=== PATIENT | male | born 1935 | race Caucasian/White ===

== ENCOUNTER → 2020-12-11 09:32 | Outpatient (CLI) | payer MEDICARE, OTHER ==
[2014-11-19 12:16] VITALS: BMI 29.3
[~2020-12-11 09:32] MED LIST: BAYER CHEWABLE81 MG PO; CARDURA8 MG PO; CO Q-10400 MG PO; COZAAR100 MG PO; DICLOFENAC SODI50 MG PO; FISH OIL 1,2001 CAP PO; FLOMAX0.4 MG PO; GLUCOPHAGE500 MG PO; GLUCOSAMINE & C1 CAP PO; HEMOCYTE PLUS C1 CAP PO; LIPITOR40 MG PO; LOPRESSOR25 MG PO; MULTIPLE VITAMI1 TA1 PO; NORVASC5 MG PO; PERCOCET 5-3251 TAB PO; PRILOSEC20 MG PO; VIAGRA100 MG PO; XALATAN 0.0052.5 ML EACH EYE; ZETIA10 MG; ZETIA10 MG PO
== END | disposition home or self-care (01) ==
LOC: D.HCCARDIO 09:32
PROVIDERS: ATTEND Internal Medicine Cardiovascular Disease
DX: I25.10 Atherosclerotic heart disease of native coronary artery without angina pectoris (principal)

== ENCOUNTER → 2020-12-18 12:01 | Day surgery (SDC) | payer MEDICARE, OTHER ==
[2014-11-19 12:16] VITALS: BMI 29.3
--- NOTE | 2020-12-18 11:30 | NUR ---
PT CANCELLED BY DR. ROGERS DUE TO PT HAVING CURRENT UTI AND STARTING ANTIBIOTICS.
== END | disposition home or self-care (01) ==
LOC: D.CATH 12:01
PROVIDERS: ATTEND Internal Medicine Cardiovascular Disease
DX: R94.30 Abnormal result of cardiovascular function study, unspecified (principal); R06.02 Shortness of breath; Z53.9 Procedure and treatment not carried out, unspecified reason

== ENCOUNTER 2021-01-02 07:08 | Day surgery (SDC) | payer MEDICARE, OTHER ==
[~2021-01-02] VITALS: Ht 182.9 cm; Wt 96.8 kg
--- NOTE | ~2021-01-02 | HEMODYNAMI ---
PATIENT:CAMI HAMPTON MEDICAL RECORD: [id number] : 37 LOCATION:[facility] ADMISSION DATE: 01/02/21 Generatedon:19:16 Patient name: CAMI HAMPTON Patient #: [id number] SSN: : 1935 Date of study: 01/02/2021 Page: Of Hemodynamic Procedure Report Patient Data Patient Demographics Procedure consent was obtained First Name: CAMI Gender: Male Last Name: MEMO : 1935 Patient #: [id number] Age: 85 year(s) Race: Unknown Additional ID: [id number] Contact details Address: [address] [place] [address] State: [place] City: [facility] Zip code: [address] Past Medical History Allergies Allergen Reaction Date Comments Reported Bactrim 01/02/2021 Admission Admission Data Admission Date: 01/02/2021 Admission Time: 7:08 Arrival Date: 01/02/2021 Arrival Time: 0:00 Height (in.): 72 BSA: 2.19 (m2) Height (cm.): 182.88 BMI: 29 (kg/m2) Weight (lbs.): 213.85 Weight (kg.): 97 Lab Results Lab Result Date: 01/02/2021 Lab Result Time: 0:00 Biochemistry Name Units Result Min Max BUN mg/dl 31 --(----)-* 7 18 Creatinine mg/dl 1.4 --(----)*- 0.6 1.3 eGFR ml/min 51 *-(----)-- 90 120 NONAFRICAN Procedure Procedure Types Cath Procedure Diagnostic Procedure C C w/Coronaries w/Grafts Sedation Charges Moderate Sedation 10-24 minutes Procedure Description Procedure Date Procedure Date: 01/02/2021 Procedure Start Time: 8:54 Procedure End Time: 9:13 Procedure Staff Name Function Tahir Carrion MD Performing Physician Kaya Aguilar RT Monitor Abby De La Cruz RT Harvey Peter RN Nurse Procedure Data Cath Procedure Fluoroscopy Diagnostic fluoroscopy Total fluoroscopy Time: 4.7 time: 4.7 min min Diagnostic fluoroscopy Total fluoroscopy dose: 813 dose: 813 mGy mGy Contrast Material Contrast Material Type Amount (ml) Isovue 300 86 Entry Location Entry Primary Successful Side Size Upsize Upsize Entry Closure Succes sful Closure Location (Fr) 1 (Fr) 2 (Fr) Remarks Device Remarks Femoral Right 5 Fr Exoseal artery Estimated blood loss: 5 ml Diagnostic catheters Device Type Used For End Catheter Placement MULTIPACK JL 4.0 5Fr Procedure catheter DIAGNOSTIC AR MOD 5Fr Procedure Catheter ([id number]) DIAGNOSTIC IM 5Fr Procedure catheter ([id number]) MULTIPACK Pigtail 5 Fr Procedure catheter Procedure Complications No complications Procedure Medications Medication Administration Route Dosage Oxygen etCO2 Nasal cannula 2 l/min Lidocaine 2% added to field 20 Heparin Flush Bag added to field 2 bags (1000units/500ml NS) 0.9% NaCl I.V. 100 ml/hr Versed I.V. 1 mg Fentanyl I.V. 50 mcg Versed I.V. 0.5 mg Fentanyl I.V. 25 mcg Hemodynamics Rest BSA: 2.19 (m2) O2 Consumption: Estimated: 244.33 (ml/min) O2 Consumption indexed : Estimated:111.57 (ml/min/m) Heart Rate: 64 (bpm) Pressure Samples Time Site Value (mmHg) Purpose Heart Use Rate(bpm) 9:07 LV 120/-5,7 Snapshot 53 9:07 AO 135/59(90) Pullback 63 9:07 LV 127/1,10 Pullback 63 Gradients Valve Time Site 1 Site 2 Mean SEP/DFP Peak To Heart Use (mmHg) (sec/min) Peak Rate (mmHg) (bpm) Aortic 9:07 LV AO 0 5 0 63 127/1,10 135/59(90) Calculations Valve P-P Mean Valve Index Valve Source Name Gradient Area Flow (cm2) Aortic 0 0 0 0 Snapshots Pre Cath Intra NCS Post Cath Vital Signs Time Heart Resp SPO2 etCO2 NIBP (mmHg) Rhythm Pain Sedation Rate (ipm) (%) (mmHg) Status Level (bpm) 8:34:25 64 11 97 8.9 150/82(114) NSR 0 (11) 10(A) , No pain 8:38:43 63 13 96 0 145/79(108) NSR 0 (11) 10(A) , No pain 8:42:55 63 10 95 20.9 139/82(119) NSR 0 (11) 10(A) , No pain 8:47:13 63 14 95 26.2 143/73(125) NSR 0 (11) 10(A) , No pain 8:51:33 63 13 92 17.9 137/77(108) NSR 0 (11) 9(A) , No pain 8:55:49 63 13 95 19.4 145/81(114) NSR 0 (11) 9(A) , No pain 9:00:11 63 11 95 23.2 147/75(120) NSR 0 (11) 9(A) , No pain 9:04:34 63 12 96 23.9 142/74(123) NSR 0 (11) 9(A) , No pain 9:08:52 64 12 96 11.2 149/78(130) NSR 0 (11) 10(A) , No pain Medications Time Medication Route Dose Verified Delivered Reason Notes Effe ctiveness by by 8:33:31 Oxygen etCO2 2 Tahir Buffie used for Nasal l/min Murali Peter RN procedure cannula 8:33:39 Lidocaine 2% added 20ml Tahir Tahir for local to vial Murali Carrion MD anesthetic field 8:33:46 Heparin Flush added 2 Tahir Tahir used for Bag to bags Murali Carrion MD procedure (1000units/500ml field NS) 8:33:56 0.9% NaCl I.V. 100 Tahir Buffie Per ml/hr Murali Peter RN physician 8:48:45 Versed I.V. 1 mg Tahir Buffie for Murali Peter RN sedation 8:48:51 Fentanyl I.V. 50 Tahir Buffie for mcg Murali Peter RN sedation 9:00:18 Versed I.V. 0.5 Tahir Buffie for mg Murali Peter RN sedation 9:00:22 Fentanyl I.V. 25 Tahir Buffie for mcg Murali Peter RN sedation Procedure Log Time Note 8:23:35 Informed consent obtained and on chart 8:24:26 Procedure Status Elective Heart Cath (OP). 8:24:28 Abby JEFFRIES(R) sent for patient. Start room use. 8:24:30 Time tracking: Regular hours (M-F 7:00 - 5:00) 8:24:32 Plan of Care:Hemodynamics will remain stable., Cardiac rhythm will remain stable., Comfort level will be maintained., Respiratory function will remain adequate., Patient/ family verbilizes understanding of procedure., Procedure tolerated without complication., Recovers from procedure without complications.. 8:24:37 H&P Date Dictated: 12/04/2020 Within 30 days and on chart., H&P Addendum completed by physician on day of procedure. (MUST COMPLETE FOR ALL OUTPATIENTS). 8:24:44 Patient allergic to Bactrim 8:25:53 Patient Weight : 213.85 lbs 8:26:17 Patient Height : 72 inches 8::22 Arrival Date: 01/02/2021 12:00:00 AM 8:27:50 Patient received from Pre/Post Procedure Room to CCL 1 Alert and oriented. Tansferred to table in Supine position. 8:32:54 Warm blankets applied, and fabian hugger turned on for patient comfort. 8:32:54 Correct patient and procedure confirmed by team. 8:33:22 Vital chart was started 8:33:31 Oxygen 2 l/min etCO2 Nasal cannula was administered by Helder Peter RN; used for procedure; Verbal order read back and verified. 8:33:39 Lidocaine 2% 20ml vial added to field was administered by Tahir Carrion MD; for local anesthetic; Verbal order read back and verified. 8:33:46 Heparin Flush Bag (1000units/500ml NS) 2 bags added to field was administered by Tahir Carrion MD; used for procedure; Verbal order read back and verified. 8:33:56 0.9% NaCl 100 ml/hr I.V. was administered by Helder Peter RN; Per physician; Verbal order read back and verified. 8:34:21 ECG and BP/O2 sat monitors applied to patient. 8:34:22 Baseline sample Acquired. 8:34:25 Rhythm: sinus rhythm 8:34:26 Full Disclosure recording started 8:34:31 Pre-procedure instructions explained to patient. 8:34:31 Pre-procedure instructions explained to patient. 8:34:32 Pre-op teaching completed and patient verbalized understanding. 8:34:34 Family in patients room. 8:34:35 Patient NPO since Midnight. 8:34:37 Is the patient allergic to Iodine/contrast media? No. 8:34:40 Is patient on blood thinner?No 8:34:41 Patient diabetic? Yes. 8:34:42 If diabetic: On Metformin? Yes 8:34:44 If on Metformin: Last Dose? 12/31/2020 8:34:48 Previous problem with sedation/anesthesia? No ? 8:34:49 Snore? Yes 8:34:50 Sleep apnea? No 8:34:51 Deviated septum? No 8:34:52 Opens mouth fully? Yes 8:34:52 Sticks out tongue? Yes 8:34:54 Airway obstruction? No ? 8:34:56 Dentures? No ? 8:35:02 Pre procedure: right dorsailis pedis pulse 2+ Normal; easily identifiable; not easily obliterated 8:35:05 Patient pain scale 0/10 ?. 8:35:10 IV patent on arrival in left hand with 0.9% NaCl at O. 8:35:24 Lab Result : Creatinine 1.4 mg/dl 8:35:24 Lab Result : BUN 31 mg/dl 8:35:24 Lab Result : eGFR NONAFRICAN 51 ml/min 8:35:27 Lab results completed and on chart. 8:35:31 Right groin area was prepped with chlora-prep and draped in sterile fashion 8:35:32 Alarms reviewed by R. N. 8:35:32 Sharps counted by scrub and verified by R.N. 8:35:54 Stress Test: yes; abnormal INFERIOR 8:41:16 Use device set Femoral Dx 8:41:17 ACIST Syringe ([id number]) opened to sterile field. 8:41:18 Bag Decanter () opened to sterile field. 8:41:19 ACIST Hand Control (83569) opened to sterile field. 8:41:19 ACIST Manifold (70480) opened to sterile field. 8:41:20 Tegaderm 4 x 4 (1626W) opened to sterile field. 8:41:21 Medline Cath Pack ([id number]) opened to sterile field. 8:41:23 DIAGNOSTIC Multipack 5Fr catheter set ([id number]) opened to sterile field. 8:41:23 SHEATH 5FR Firth ([id number]) opened to sterile field. 8:41:24 EMERALD Guide Wire (064-264) opened to sterile field. 8:46:19 --------ALL STOP TIME OUT------ 8:46:19 Final Timeout: patient, procedure, and site verified with staff and physician. All members of the team are in agreement. 8:46:32 Right groin site verified by team. 8:46:34 Fire Safety Assessment: A--An alcohol-based skin anteseptic being used preoperatively., C--Open oxygen or nitrous oxide is being used., D--An ESU, laser, or fiber-optic light is being used. 8:46:37 Physical assessment completed. ASA score P 2 - A patient with mild systemic disease as per Tahir Carrion MD. 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 8:46:43 Maximum allowable contrast dose (3.7 X eGFR X 0.75)142 ml. 8:46:46 Sedation plan: IV Moderate Sedation Medication:Versed, Fentanyl 8:47:19 Zero performed for pressure channel P1 8:48:45 Versed 1 mg I.V. was administered by Helder Peter RN; for sedation; Verbal order read back and verified. 8:48:51 Fentanyl 50 mcg I.V. was administered by Helder Peter RN; for sedation; Verbal order read back and verified. 8:50:40 Procedure type changed to Cath procedure, Diagnostic procedure, LHC, LHC w/Coronaries w/Grafts, Sedation Charges, Moderate Sedation 10-24 minutes 8:54:30 Procedure started. 8:54:35 Local anesthetic to right femoral artery with Lidocaine 2% by Tahir Carrion MD.INITIAL ACCESS ONLY 8:55:48 A 5 Fr sheath was inserted into the Right Femoral artery 8:56:46 A MULTIPACK JL 4.0 5Fr catheter was advanced over the wire and used for Procedure. 8:58:18 LCA angiography performed. 8:58:20 Catheter exchanged over wire. 8:58:24 A DIAGNOSTIC AR MOD 5Fr Catheter ([id number]) was advanced over the wire and used for Procedure. 9:00:18 Versed 0.5 mg I.V. was administered by Helder Peter RN; for sedation; Verbal order read back and verified. 9:00:22 Fentanyl 25 mcg I.V. was administered by Helder Peter RN; for sedation; Verbal order read back and verified. 9:00:26 RCA angiography performed. 9:00:57 SVG to Ramus angiography performed. 9:01:23 SVG to OM angiography performed. 9:02:52 SVG to RCA angiography performed. 9:03:01 Catheter exchanged over wire. 9:03:53 A DIAGNOSTIC IM 5Fr catheter ([id number]) was advanced over the wire and used for Procedure. 9:05:16 SVG to LAD angiography performed. 9:05:50 Catheter exchanged over wire. 9:05:58 A MULTIPACK Pigtail 5 Fr catheter was advanced over the wire and used for Procedure. 9:07:14 LV gram done using RIVERS 9::22 Injector settings: Ml/sec: 10, Volume: 20, 9:07:23 LV hemodynamics recorded. 9:07:34 EF : 55 % 9:07:53 Catheter removed. 9:08:00 EXOSEAL 5Fr (EX500) opened to sterile field. 9:08:49 Sheath removed intact; hemostasis achieved with Exoseal to the Right Femoral artery. 9:08:56 Procedure ended.(Physican Out) 9:09:09 Fluoroscopy time 04.70 minutes. 9:09:13 Fluoroscopy dose: 813 mGy 9:09:13 Flurop Dose total: 813 9:09:20 Dose Area Product 96035 mGy/cm. 9:09:24 Contrast amount:Isovue 300 86ml. 9:09:28 Maximum allowable dose exceeded? No. 9:09:29 Sharps counted by scrub and verified by R.N. 9:09:35 Post-op/insertion site Right Femoral artery dressed using a 4 x 4 and Tegaderm. 9:09:37 Post-procedure physical assessment completed. ASA score P 2 - A patient with mild systemic disease as per Tahir Carrion MD. 9:09:42 Post procedure rhythm: sinus rhythm 9:09:44 Estimated blood loss: 5 ml 9:09:45 Post procedure instruction explained to patient.Patient verbalizes understanding. 9:09:46 Patient needs reinforcement of post procedure teaching. 9:10:15 Procedure and supply charges have been captured, reviewed, submitted and are correct. 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 9:10:23 See physician's report for complete and final results. 9:10:25 Report given to Pre/Post Procedure Room. 9:10:28 Patient transfered to Pre/Post Procedure Room with Bed. 9:13:24 Procedure ended. 9:13:24 Full Disclosure recording stopped 9:15:45 End room use (Document Last) 9:16:08 Procedure ended.(Physican Out) Device Usage Item Name Manufacture Quantity Catalog Hospital Part Current Minimal L ot# / Number Charge Number Stock Stock Serial# Code ACIST Acist 1 18827 339648 003675 [id number] 20 Syringe Medical (33305) Systems Inc Bag Microtek 1 2001S 640107 24762 884273 5 Decanter Medical Inc. () ACIST Hand Acist 1 40323 298249 879699 110485 5 Control Medical (26238) Systems Inc ACIST Acist 1 48870 047162 197859 975889 5 Manifold Medical (60057) Systems Inc Tegaderm 4 3M 1 1626W 990702 571599 099480 5 x 4 (1626W) Medline Medline 1 [id number] 43764 572058 5 Cath Pack ([id number]) DIAGNOSTIC Cardinal 1 [id number] 728147 23021 353891 30 Multipack Health 5Fr catheter set (PE7599) SHEATH 5FR Terumo 1 [id number] 175213 688066 483314 5 Firth (PPH617) EMERALD Cardinal 1 502-455 429566 394478 375594 5 Guide Wire Health (502455) MULTIPACK Cardinal 1 957476 5 JL 4.0 5Fr Health catheter DIAGNOSTIC Cardinal 1 [id number] 778615 377355 170781 15 AR MOD 5Fr Health Catheter (766546D) DIAGNOSTIC Cardinal 1 [id number] 162426 434954 372123 5 IM 5Fr Health catheter (887026U) MULTIPACK Cardinal 1 884045 5 Pigtail 5 Health Fr catheter EXOSEAL 5Fr Cardinal 1 EX500 612605 093840 702932 10 (EX500) Health Signature Audit [place] Stage Time Signature Unsigned Intra-Procedure 01/02/2021 Kaya Aguilar 9:15:55 AM RT(R) Intra-Procedure 01/02/2021 Helder Peter RN 9:16:08 AM Intra-Procedure 01/02/2021 Tahir Carrion MD 9:16:26 AM [facility] [address] [place] [address]
[2021-01-02] MEDS ORDERED: HYDROCHLOROTH12.5 M1 PO (07:27)
[2021-01-02] MEDS ORDERED: GABAPENTIN300 MG PO (07:28)
[2021-01-02] MEDS ORDERED: HEALTHYLAX17 GM PO (07:28)
[2021-01-02] MEDS ORDERED: PROBIOTIC BLEN1 EACH PO (07:30)
[2021-01-02 07:42] VITALS: BP 132/70; Ht 182.9 cm; Wt 96.8 kg
[2021-01-02 07:58] LABS: ANION GAP 15.1 mmol/L (8-16); CALCIUM 9.5 mg/dL (8.5-10.1); CHOL - HDL RATIO 3.1 ratio (2.3-4.9); CREATININE - SERUM 1.4 mg/dL (0.6-1.3); LDL-HDL RATIO 1.5 ratio (1.5-3.5); POTASSIUM - SERUM 4.1 mmol/L (3.5-5.1)
[2021-01-02 08:23] LABS: BASOPHILS 0.8 % (0-2); EOSINOPHILS 4.6 % (0-7); HEMATOCRIT 39.4 % (42.0-54.0); HEMOGLOBIN 12.9 g/dL (13.5-17.5); IMMATURE GRANULOCYTES 0.6 % (0-5); LYMPHOCYTE ABS# 1.39 10x3/uL (1.32-3.57); LYMPHOCYTES 26.7 % (15-50); MCH 28.5 pg (26.0-34.0); MCHC 32.7 g/dL (31.0-37.0); MEAN PLATELET VOLUME 10.8 fL (7.4-10.4); MONOCYTES 8.8 % (2-11); NEUTROPHIL ABS# 3.04 10x3/uL (1.78-5.38); NEUTROPHILS 58.5 % (40-80); PLATELET COUNT 228 10x3/uL (130-400); RBC 4.53 10x6/uL (4.20-6.10); WBC 5.2 10x3/uL (4.8-10.8)
--- NOTE | 2021-01-02 09:25 | NUR ---
PT REC'D TO COUNTER CLERK [employer] [facility] RO[facility] 10. MONITORS ESTAB. AT BS. SEE LOAN INTERVIEWER MORTGAGE FLOWSHEETS. ALARMS ON AND C/L IN REACH.
--- NOTE | 2021-01-02 09:40 | NUR ---
PT RESTING QUIETLY, VSS. R GROIN SITE SOFT, NO S/S BLEEDING OR HEMATOMA. R LEG/FOOT WARM WITH PALP PULSES AND CAP REFILL WNL. ALARMS ON AND C/L IN REACH.
--- NOTE | 2021-01-02 10:10 | NUR ---
PT RESTING QUIETLY, R GROIN SITE SOFT, NO S/S BLEEDING OR HEMATOMA. R LEG/FOOT WARM WITH PALP PULSES AND CAP REFILL WNL. VSS. PT DENIES PAIN OR NEEDS. ALARMS ON AND C/L IN REACH.
--- NOTE | 2021-01-02 10:25 | NUR ---
R GROIN SITE SOFT, NO S/S BLEEDING, PULSES PALP. HOB ELEVATED. SANDWICH TRAY AND DIET COLA PROVIDED. ASSISTING PT.
--- NOTE | 2021-01-02 10:40 | NUR ---
PT TOLERATING EATING. R GROIN SITE SOFT, PULSES PALP. VSS.
--- NOTE | 2021-01-02 11:00 | NUR ---
R GROIN SITE SOFT, NO S/S BLEEDING OR HEMATOMA. PULSES PALP. VSS. PT DENIES PAIN. GIVEN FRESH COFFEE PER REQUEST.
--- NOTE | 2021-01-02 11:30 | NUR ---
R GROIN SITE SOFT, NO S/S BLEEDING OR HEMATOMA, PULSES PALP.
--- NOTE | 2021-01-02 11:34 | NUR ---
ALL DISCHARGE INSTRUCTIONS REVIEWED WITH PT AND HIS - INCLUDING RESTRICTIONS, MEDS AND F/U APPTS. BOTH VERBALIZE UNDERSTANDING. PIV D/C'D INTACT, DSG APPLIED. PT ALLOWED UP TO GET DRESSED AND GO TO BR INDEPENDENTLY.
--- NOTE | 2021-01-02 12:00 | NUR ---
PT SITTING UP IN CHAIR, WAITING TO SPEAK WITH DR. ROGERS. PT HAS NOT VOIDED - REPORTS HE SELF CATHS WHICH WAS NOT MENTIONED ON ADMISSION.
--- NOTE | 2021-01-02 12:25 | NUR ---
DR. ROGERS IN TO SEE PT - UPDATE GIVEN AND QUESTIONS ANSWERED.
--- NOTE | 2021-01-02 12:30 | NUR ---
PT D/C'D TO PRIVATE VEHICLE WITH ALL PAPERWORK AND BELONGINGS.
== END 2021-01-02 12:30 | disposition home or self-care (01) ==
LOC: D.CATH 07:08
PROVIDERS: ATTEND Internal Medicine Cardiovascular Disease
DX: I25.118 Atherosclerotic heart disease of native coronary artery with other forms of angina pectoris (principal); R94.39 Abnormal result of other cardiovascular function study; I10 Essential (primary) hypertension; E78.5 Hyperlipidemia, unspecified; R07.9 Chest pain, unspecified; R06.09 Other forms of dyspnea